=== PATIENT | female | born 1995 | race American Indian/Alaskan Native ===

== ENCOUNTER 2016-08-23 12:20 | Emergency (ER) | payer MEDICAID ==
[2016-08-23 12:37] VITALS: BP 130/88
[2016-08-23] MEDS ORDERED: NORCO 5/325 PO ONE (12:57)
[2016-08-23] MEDS ORDERED: TORADOL IM ONE (12:57)
--- NOTE | 2016-08-23 12:58 | Emergency Department Report ---
Upper Extremity - HPI Chief Complaint: Shoulder Injury Stated Complaint: DEFORMITY L/ SHOULDER Time Seen by Provider: 08/23/16 12:50 Upper Extremity: Left Shoulder, Left Arm, Left Elbow Occurred When: Today Mechanism: Fall Severity: mild Symptoms: Yes Pain with Movement, Yes Limited Range of Movement, No Deformity, No Numbness, No Weakness, No Swelling, No Bruising/Ecchymosis, No Laceration or Abrasion Other History: This is a 21-year-old female. She is previously unknown to me. She is right-hand dominant. She reports that she is not . She presents to the ER with left bicep pain, left shoulder pain, and left elbow pain after mechanical fall. There is no head pain. There is no neck pain. There are no other complaints. The pain is sharp and achy. It increases with palpation. It decreases with rest. ED Review of Systems ROS: Stated complaint: DEFORMITY L/ SHOULDER Other details as noted in HPI Constitutional: denies: fever, malaise Eyes: denies: vision change ENT: denies: epistaxis Respiratory: denies: cough Cardiovascular: denies: chest pain Gastrointestinal: denies: abdominal pain Genitourinary: as per HPI Musculoskeletal: arthralgia, myalgia Skin: denies: lesions Neurological: denies: headache, weakness Psychiatric: anxiety ED Past Medical Hx - Past Medical History Previous Medical History?: No - Surgical History Past Surgical History?: No - Social History Smoking Status: Never Smoker Substance Use Type: None - Medications Home Medications: Home Medications Medication Instructions Recorded Confirmed Last Taken Type Ibuprofen [Motrin] 600 mg PO Q8H PRN #30 tablet 08/23/16 Unknown Rx Upper Extremity Exam - Exam General: Vital signs noted. No distress. Alert and acting appropriately. Extraocular movements intact. Tongue midline. No facial droop. Facial sensation intact to light touch in the V1, V2, V3 distribution bilaterally. 5 and 5 strength in 4 extremities.. Sensation is intact to light touch in 4 extremities. Gait within normal limits. 2+ pulses noted in 4 extremities. The compartments are soft. Sensation intact to light touch in the deltoid, median, radial, ulnar distribution bilaterally. Head and Torso: No HEENT Abnormality, No Neck Tenderness, No Chest/Lungs Abnormality, No Abdominal Tenderness, No Back Tenderness Shoulder Exam: No Shoulder Tenderness, No Clavicle Tenderness, No Normal Range of Motion in Shoulder (patient holding the shoulder in a neutral position, will not allow me to actively or passively range it.), No Shoulder Deformity, No AC Joint Tenderness Arm Exam: Yes Arm/Humerus Tenderness (there is left-sided biceps tenderness), No Arm Deformity Elbow: No Elbow Tenderness, No Normal Range of Motion in Elbow (patient will not allow me to passively range the elbow. There is no long bony tenderness. The patient is holding the elbow in a flexed position at 90), No Elbow Deformity Forearm: No Forearm Tenderness, No Forearm Deformity, No Pain with Pronation, No Pain with Supination Wrist: Yes Normal ROM in Wrist, No Wrist Tenderness, No Wrist Deformity, No Snuffbox Tenderness, No Pain with Axial Thumb Compression Hand: Yes Normal ROM in Digit(s), No Hand Tenderness, No Hand Deformity, No Digit Tenderness, No Digit(s) Deformity, No Tendon Dysfunction CMS Exam: No Broken Skin, No Normal Distal Pulses, No Normal Capillary Refill, No Normal Distal Sensation ED Course Vital Signs 08/23/16 12:33 Temperature 98.6 F Pulse Rate 105 H Respiratory 18 Rate Blood Pressure 130/88 [Right] O2 Sat by Pulse 100 Oximetry ED Medical Decision Making - Lab Data Vital Signs 08/23/16 12:33 Temperature 98.6 F Pulse Rate 105 H Respiratory 18 Rate Blood Pressure 130/88 [Right] O2 Sat by Pulse 100 Oximetry - Radiology Data Radiology results: report reviewed, image reviewed X-ray of the shoulder is negative. X-ray of the elbow, forearm are negative. - Medical Decision Making Differential diagnosis: Sprain, fracture, dislocation, contusion, partial biceps tendon rupture Assessment and plan: 21-year-old female with A fall onto her left arm. She is afebrile with reassuring vital signs. 2+ pulses are noted in 4 extremities. Sensation is intact to light touch in the deltoid, median, radial, ulnar distribution. The compartments are soft. There is no long bony tenderness. The patient will not allow me to range the left elbow secondary to pain in the bicep. There is some reproducible tenderness in the bicep. I suspect that the patient may have a strain/sprain/partial rupture of the biceps tendon. She is placed in a sling for comfort. She is instructed to follow-up with outpatient orthopedic surgeon. Return precautions are reviewed. She has 5/5 strength distally in bilateral upper extremities Critical care attestation.: If time is entered above; I have spent that time in minutes in the direct care of this critically ill patient, excluding procedure time. ED Disposition Clinical Impression: Left arm pain Disposition: DC- TO HOME OR SELFCARE Is pt being admited?: No Does the pt Need Aspirin: No Condition: Stable Instructions: Musculoskeletal Pain (ED) Additional Instructions: Rest and avoid heavy lifting. Avoid strenuous physical activity. Take pain medication as directed. Given the mechanism of injury and pain that you are experiencing, you may have a partial strain/strain/rupture of the left-sided biceps tendon. Please follow-up with the primary care doctor or orthopedic physician within the next week. Do not take the sling off the arm until cleared by either primary care or orthopedics. Return to the ER right away with new pain, worsened pain, migration of pain, weakness, numbness, confusion, inability to tolerate liquid feeds. Referrals: [facility]([place]) [Other] - 3-5 Days LEO AVILES MD [Staff Physician] - 3-5 Days Forms: Work/School Release Form(ED)
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
--- NOTE | 2016-08-23 14:33 | XRay Report ---
FINAL REPORT EXAM: XR FOREARM LT HISTORY: left arm pain fall TECHNIQUE: 2 views of the left forearm. PRIORS: None FINDINGS: Radius and ulna appear intact. No acute fracture or dislocation seen. IMPRESSION: 1. No acute finding.
--- NOTE | 2016-08-23 14:34 | XRay Report ---
FINAL REPORT EXAM: XR HUMERUS 2 LT HISTORY: left arm pain TECHNIQUE: 2 views of the left humerus. PRIORS: None FINDINGS: No acute fracture or dislocation. No significant soft tissue abnormality. IMPRESSION: 1. No acute finding.
== END 2016-08-23 15:12 | disposition home or self-care (01) ==
LOC: ED 12:20
DX: M25.512 Pain in left shoulder (principal); M25.522 Pain in left elbow; W18.30XA Fall on same level, unspecified, initial encounter; Y93.89 Activity, other specified; Y92.89 Other specified places as the place of occurrence of the external cause; Y99.8 Other external cause status
CPT/HCPCS: 73030; 73060; 73090; 96372; 99284; J1885

== ENCOUNTER 2018-01-25 23:14 | Emergency (ER) | payer MEDICAID ==
[2018-01-25] MEDS ORDERED: BOOSTRIX IM ONE (23:48)
[2018-01-25] MEDS ORDERED: MORPHINE IV ONE (23:48)
[2018-01-26] MEDS ORDERED: MORPHINE ONE
[2018-01-26 01:06] LABS: HCG Qualitative,Urine Negative (Negative)
[2018-01-26] MEDS ORDERED: CLEOCIN 900 MG/50 mL 900 MG/50 ML BAG IV ONE (01:24)
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
[2018-01-26] MEDS ORDERED: ZOFRAN IV ONE (03:05)
[2018-01-26] MEDS ORDERED: ZOFRAN ONE (03:06)
[2018-01-26] MEDS ORDERED: MORPHINE IV ONE (03:06)
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
[2018-01-26 03:41] VITALS: BP 120/75
== END 2018-01-26 04:00 | disposition home or self-care (01) ==
LOC: ED 23:14
DX: S01.412A Laceration without foreign body of left cheek and temporomandibular area, initial encounter (principal); Y04.8XXA Assault by other bodily force, initial encounter; Y93.89 Activity, other specified; Y92.099 Unspecified place in other non-institutional residence as the place of occurrence of the external cause; Y99.8 Other external cause status
CPT/HCPCS: 12011; 70450; 70486; 81025; 90471; 90715; 96365; 96375; 96376; 99284; J2270; J2405